=== PATIENT | female | born 1935 | race Caucasian/White ===

== ENCOUNTER 2017-08-12 03:08 | Inpatient (IN) | payer OTHER, BC ==
[~2017-08-12] VITALS: Ht 154.9 cm; Wt 69.0 kg
[2017-08-12 03:47] LABS: HEMATOCRIT 39.6 % (36.0-46.0); HEMOGLOBIN 13.9 G/DL (11.9-15.5); MCH 33.3 PG (29.0-34.0); MCHC 35.1 G/DL (30.0-36.0); MCV 94.7 FL (83-99); PLATELET COUNT 299 K/uL (156-360); RBC DIS.WIDTH-CV 12.6 % (11.8-14.6); RBC DIS.WIDTH-SD 43.8 % (39-53); RED BLOOD COUNT 4.18 M/uL (3.80-5.20); WHITE BLOOD COUNT 25.2 K/uL (4.1-10.2)
[2017-08-12 03:59] LABS: CHLORIDE 98 mEq/L (99-109); POTASSIUM 3.9 mEq/L (3.7-5.4); SODIUM 132 mEq/L (136-147)
[2017-08-12 04:01] LABS: GLUCOSE 272 mg/dL (70-99)
[2017-08-12 04:05] LABS: GFR ESTIMATE (CALCULATED) 56 mL/min/
[2017-08-12 04:06] LABS: UREA NITROGEN (BUN) 35 mg/dL (9-23)
[2017-08-12 04:10] LABS: TROP-I INTERPRETATION NEGATIVE; TROPONIN-I 0.01 ng/mL (0.0-0.30)
[2017-08-12 04:53] LABS: MAGNESIUM 1.7 mg/dL (1.3-2.7)
[2017-08-12] MEDS ORDERED: SYNTHROID75 MCG PO (07:39)
[2017-08-12] MEDS ORDERED: TOPROL XL100 MG PO (07:39)
[2017-08-12] MEDS ORDERED: CATAPRES0.1 MG PO (07:40)
[2017-08-12] MEDS ORDERED: TYLENOL REGULA325 MG PO (07:41)
[2017-08-12] MEDS ORDERED: MAXZIDE 37.5 M1 EACH PO (07:41)
[2017-08-12] MEDS ORDERED: VITAMIN D2000 UNI1 PO (07:42)
[2017-08-12] MEDS ORDERED: ASCORBIC ACID100 MG PO (07:42)
[2017-08-12 08:40] VITALS: BP 153/69
[2017-08-12 08:50] VITALS: BP 153/69
[2017-08-12 12:13] VITALS: BP 157/68
[2017-08-12 12:36] LABS: TROP-I INTERPRETATION NEGATIVE; TROPONIN-I 0.01 ng/mL (0.0-0.30)
[2017-08-12 16:00] VITALS: BP 168/68
[2017-08-12 18:09] LABS: TROP-I INTERPRETATION NEGATIVE; TROPONIN-I 0.01 ng/mL (0.0-0.30)
[2017-08-12 20:08] VITALS: BP 150/70
[2017-08-12 23:12] VITALS: BP 148/74
[2017-08-13] VITALS (7 sets, daily range): BP systolic 156–182; BP diastolic 52–86
[2017-08-13 05:23] LABS: HEMATOCRIT 33.3 % (36.0-46.0); HEMOGLOBIN 11.3 G/DL (11.9-15.5); MCH 32.9 PG (29.0-34.0); MCHC 33.9 G/DL (30.0-36.0); MCV 97.1 FL (83-99); PLATELET COUNT 222 K/uL (156-360); RBC DIS.WIDTH-CV 12.8 % (11.8-14.6); RED BLOOD COUNT 3.43 M/uL (3.80-5.20); WHITE BLOOD COUNT 16.7 K/uL (4.1-10.2)
[2017-08-13 05:24] LABS: INTER. NORMALIZED RATIO 1.3
[2017-08-13 05:27] LABS: PTT 24.5 SEC (25-37)
[2017-08-13 06:00] LABS: ALKALINE PHOSPHATASE 58 IU/L (3-129); ALT (GPT) 16 IU/L (3-49); AST (GOT) 14 IU/L (2-34); CHLORIDE 100 MEQ/L (99-109); CREATININE 0.9 MG/DL (0.6-1.3); GFR ESTIMATE (CALCULATED) > 59 mL/min/; GLUCOSE 181 mg/dL (70-99); POTASSIUM 4.1 MEQ/L (3.7-5.4); SODIUM 133 MEQ/L (136-147); TOTAL BILIRUBIN 0.6 MG/DL (0.0-1.0); TOTAL PROTEIN 6.4 G/DL (6.4-8.3); UREA NITROGEN (BUN) 31 mg/dL (9-23)
[2017-08-13 11:00] LABS: TYPE OF FLUID THORACENTESIS
[2017-08-13 11:09] LABS: APPEARANCE CLOUDY/BLOODY
[2017-08-13 11:10] LABS: BODY FLUID RBC'S ND /MM^3 (0-100); BODY FLUID WBC'S ND /MM^3 (0-500)
[2017-08-13 11:39] LABS: BODY FLUID LDH 1686 IU/L; BODY FLUID PROTEIN 5.1 G/DL
[2017-08-13 11:47] LABS: BODY FLUID EOSINOPHILS 0 % (0-25); MONONUCLEAR WBC'S 42 %; POLYNUCLEAR WBC'S 58 % (0-25)
[2017-08-13 17:00] LABS: APPEARANCE SL.HAZY ((CLEAR)); BILIRUBIN NEGATIVE; BLOOD SMALL; COLOR YELLOW ((YELLOW)); GLUCOSE (STRIP) NEGATIVE; KETONES NEGATIVE; LEUKOCYTES NEGATIVE; NITRITE NEGATIVE; PROTEIN (STRIP) 100; SPECIFIC GRAVITY 1.027 (1.000-1.030); UROBILINOGEN 0.2 MG/DL (0.2-1.0)
[2017-08-13 17:05] LABS: BACTERIA 1+ /HPF; EPITHELIAL CELLS RARE /HPF; MUCUS TRACE /LPF; RED BLOOD CELLS 0-5 /HPF (0-5); UCUL ADDED? YES
[2017-08-14 04:29] VITALS: BP 174/74
[2017-08-14 05:20] LABS: BASOPHIL (%) 0.2 % (0-1); EOSINOPHIL (%) 0.1 % (0-5); HEMATOCRIT 35.4 % (36.0-46.0); IMMATURE GRANULOCYTE (%) 3.6 % (0.0-0.7); LYMPHOCYTE (%) 7.5 % (15-42); LYMPHOCYTE COUNT 1.3 K/uL (1.0-2.8); MCH 33.1 PG (29.0-34.0); MCHC 33.9 G/DL (30.0-36.0); MCV 97.8 FL (83-99); MONOCYTE (%) 7.4 % (3-12); MONOCYTE COUNT 1.3 K/uL (0-0.8); NEUTROPHIL (%) 81.2 % (45-76); NEUTROPHIL COUNT 13.8 K/uL (1.8-6.4); RBC DIS.WIDTH-SD 46.8 % (39-53); RED BLOOD COUNT 3.62 M/uL (3.80-5.20)
[2017-08-14 05:23] LABS: PLATELET COUNT 308 K/uL (156-360)
[2017-08-14 05:48] LABS: ALBUMIN 3.2 G/DL (3.2-4.8); ALKALINE PHOSPHATASE 69 IU/L (3-129); ALT (GPT) 20 IU/L (3-49); AST (GOT) 17 IU/L (2-34); CHLORIDE 100 MEQ/L (99-109); CREATININE 0.8 MG/DL (0.6-1.3); GFR ESTIMATE (CALCULATED) > 59 mL/min/; GLUCOSE 182 mg/dL (70-99); POTASSIUM 3.7 MEQ/L (3.7-5.4); SODIUM 138 MEQ/L (136-147); TOTAL BILIRUBIN 0.8 MG/DL (0.0-1.0); TOTAL PROTEIN 6.5 G/DL (6.4-8.3); UREA NITROGEN (BUN) 28 mg/dL (9-23)
[2017-08-14 08:11] VITALS: BP 189/98
[2017-08-14 10:11] LABS: HEMOGLOBIN A1c (GLYCOHEMOGLOB) 6.2 % (Below 5.7)
[2017-08-14 11:23] VITALS: BP 179/80
[2017-08-14] MEDS ORDERED: CEFTRIAXONE1 G1 IV (12:09)
[2017-08-14] MEDS ORDERED: VENTOLIN HFA18 GM IH (12:11)
[2017-08-14] MEDS ORDERED: DULERA 100 MCG/13 GM IH (12:11)
[2017-08-14] MEDS ORDERED: TOPROL XL50 MG PO (12:24)
== END 2017-08-14 13:53 | disposition home or self-care (01) | DRG 308 ==
LOC: EME 03:08 → EDOF 06:38 → ENRESERV 06:42 → 4EAST 08:52
PROVIDERS: Hospitalist; Radiology Diagnostic Radiology
PROC: 0W9B3ZZ Drainage of Left Pleural Cavity, Percutaneous Approach (ICD-10-PCS; principal; 2017-08-13)
DX: I48.2 Chronic atrial fibrillation (principal); J18.9 Pneumonia, unspecified organism; B95.3 Streptococcus pneumoniae as the cause of diseases classified elsewhere; I48.91 Unspecified atrial fibrillation; I10 Essential (primary) hypertension; E78.5 Hyperlipidemia, unspecified; E03.9 Hypothyroidism, unspecified; R00.0 Tachycardia, unspecified; J13 Pneumonia due to Streptococcus pneumoniae; E87.1 Hypo-osmolality and hyponatremia; J90 Pleural effusion, not elsewhere classified; E27.8 Other specified disorders of adrenal gland; R78.81 Bacteremia; Z90.710 Acquired absence of both cervix and uterus; Z88.6 Allergy status to analgesic agent; Z91.19 Patient's noncompliance with other medical treatment and regimen
CPT/HCPCS: 71046; 71275; 76942; 80048; 80053; 81003; 82948; 83036; 83605; 83615 91; 83735; 83880; 84157; 84484; 85025; 85027; 85610; 85730; 87040; 87070; 87075; 87077; 87086; 87181; 87205; 87449; 87801; 88108; 88305; 89051; 93005; 93306; 94640; 94640 76; 94667; 94668; 99202; 99281; 99285; J0456; J0696; J1644; J1815; J2270; J3370; J7040